=== PATIENT | male | born 1950 | race Caucasian/White ===

== ENCOUNTER 2020-09-29 07:06 | Outpatient (CLI) | payer MEDICARE, SELFPAY ==
--- NOTE | 2020-09-29 07:15 | USCV_ITS ---
Leonard Montiel Sr Age: 70 Gender: M : 1950 Exam Date: 09/29/2020 07:25 Ordering Phys: Miguel Angel Godwin MD ([email or web address]) Technologist: Exam [place]: [facility] [place]: HX OF LT RENAL STENOIS Aortic Velocity @ SMA (cm/s) 63.6 RIGHT KIDNEY LEFT KIDNEY Velocity (cm/s) Velocity (cm/s) Sys/Sterling Sys/Sterling Resistive Index Resistive Index 95.5 / 24.8 0.74 Proximal Renal Artery 279.0 / 53.6 0.82 100.2 / 21.2 0.79 Mid Renal Artery 144.3 / 39.2 0.74 167.4 / 41.3 0.75 Distal Renal Artery 83.3 / 19.1 0.77 110.8 / 29.5 0.73 Hilar 86.7 / 16.9 0.81 54.8 / 10.7 0.81 Upper Pole 46.9 / 10.3 0.78 79.5 / 22.8 0.71 Mid Pole 47.0 / 33.5 0.30 82.2 / 20.1 0.76 Lower Pole 48.2 / 12.9 0.73 2.60 Renal Aortic Ratio 5.05 Accleration Index (cm/sec2) 1645.0 Hilar 875.00 0 1121.0 Upper Pole 307.00 0 1224.0 Mid Pole 310.00 0 1054.0 Lower Pole 369.00 0 106.9 Kidney Length (mm) 91.4 FINDINGS NO CHANGE FROM PREVIOUS Elevated velocity in the left proximal renal artery with renal aortic ratio of greater than 3.5 Elevated resistive indicis bilaterally CONCLUSIONS 1. Features of greater than 60% stenosis in the left renal artery at the proximal segment. 2. Normal kidney dimensions. 3. Elevated resistive indicis suggestive of medical renal disease No similar previous studies are available for comparison Dr Enedina Vincent MD [facility] (Electronically Signed) Final Date: 30 September 2020 08:36 S
== END 2020-09-29 07:07 | disposition home or self-care (01) ==
PROVIDERS: PCP Nurse Practitioner; Visit Provider Internal Medicine Cardiovascular Disease
DX: I70.1 Atherosclerosis of renal artery (principal); Z87.442 Personal history of urinary calculi
CPT/HCPCS: 93975

== ENCOUNTER → 2021-05-02 08:57 | Outpatient (BNVA) | payer MEDICARE, SELFPAY | PROVIDERS: PCP Nurse Practitioner Family; Visit Provider Nurse Practitioner Family | DX: I10 Essential (primary) hypertension (principal); Z12.5 Encounter for screening for malignant neoplasm of prostate; E55.9 Vitamin D deficiency, unspecified | CPT/HCPCS: 80053; 80061; 82306; 84443; 85025; G0103 ==

== ENCOUNTER → 2021-10-21 08:37 | Outpatient (BNVA) | payer MEDICARE, SELFPAY | PROVIDERS: PCP Nurse Practitioner Family; Visit Provider Nurse Practitioner Family | DX: R53.83 Other fatigue (principal); Z68.29 Body mass index [BMI] 29.0-29.9, adult | CPT/HCPCS: 82607; 84403; 86000; 86618; 86666; 86757 ==

== ENCOUNTER → 2022-10-25 11:15 | Outpatient (BNVA) | payer MEDICARE, OTHER, SELFPAY | PROVIDERS: PCP Nurse Practitioner Family; Visit Provider Family Medicine | DX: R35.0 Frequency of micturition (principal); N39.0 Urinary tract infection, site not specified | CPT/HCPCS: 81003; 87077; 87086; 87184 ==

== ENCOUNTER 2022-11-03 17:55 | Outpatient (CLI) | payer MEDICARE, OTHER, SELFPAY ==
--- NOTE | 2022-11-03 18:35 | XRR_ITS ---
PROCEDURE INFORMATION: Exam: XR Right Ribs Exam date and time: 11/03/2022 7:36 PM Age: 72 years old Clinical indication: Chest wall pain; Right; Additional info: R07.81 - pleurodynia TECHNIQUE: Imaging protocol: Radiologic exam of the right ribs. Views: 2 views. COMPARISON: CT angio abdomen [id number] 10/15/2017 9:00 AM FINDINGS: Bones/joints: No displaced rib fractures are evident. Soft tissues: Normal. XR/XR ribs RT 2V* [id number] IMPRESSION: No displaced rib fractures are seen, but there is limited plain film sensitivity for nondisplaced fractures. Regardless, there is no evidence of pneumothorax, pulmonary parenchymal contusion, or pleural effusion.
--- NOTE | 2022-11-03 18:35 | XRR_ITS ---
PROCEDURE INFORMATION: Exam: XR Chest Exam date and time: 11/03/2022 7:36 PM Age: 72 years old Clinical indication: Chest wall pain; Additional info: R07.81 - pleurodynia TECHNIQUE: Imaging protocol: Radiologic exam of the chest. Views: 2 views. COMPARISON: CT angio abdomen [id number] 10/15/2017 9:00 AM FINDINGS: Lungs: Lungs are hyperinflated. Clear parenchyma. Pleural spaces: No pleural effusion. No pneumothorax. Heart/Mediastinum: Cardiac silhouette is normal in size for technique. Bones/joints: Age appropriate. XR/XR chest 2V* [id number] IMPRESSION: Hyperinflated but clear lungs. No other acute cardiopulmonary abnormality.
== END 2022-11-03 18:28 | disposition home or self-care (01) ==
LOC: ER 18:05 → RAD 18:29
PROVIDERS: PCP Nurse Practitioner Family; Visit Provider Nurse Practitioner Family
DX: R07.81 Pleurodynia (principal)
CPT/HCPCS: 71046; 71100

== ENCOUNTER → 2022-11-20 10:40 | Outpatient (BNVA) | payer MEDICARE, OTHER, SELFPAY | PROVIDERS: PCP Nurse Practitioner Family; Visit Provider Nurse Practitioner Family | DX: R30.0 Dysuria (principal); N39.0 Urinary tract infection, site not specified; R31.9 Hematuria, unspecified; R07.81 Pleurodynia | CPT/HCPCS: 81003; 87077; 87086; 87184 ==

== ENCOUNTER → 2022-12-04 16:55 | Outpatient (BNVA) | payer MEDICARE, OTHER, SELFPAY | PROVIDERS: PCP Nurse Practitioner Family; Visit Provider Nurse Practitioner Family | DX: R35.0 Frequency of micturition (principal) | CPT/HCPCS: 81000; 81003; 87077; 87086; 87184 ==

== ENCOUNTER 2024-05-06 07:45 | Outpatient (CLI) | payer MEDICARE, OTHER, SELFPAY ==
--- NOTE | 2024-05-06 07:53 | XRR_ITS ---
PROCEDURE INFORMATION: Exam: XR Bilateral Hips Exam date and time: 05/06/2024 7:58 AM Age: 74 years old Clinical indication: Hip pain; Bilateral; Patient HX: --hx of tailbone fracture, x1 week injured groin area, pain runs around lower back; Additional info: M25.551 - pain in right hip TECHNIQUE: Imaging protocol: Radiologic exam of the bilateral hips. Views: 2 views of hips with pelvis when performed. COMPARISON: CR XR lumbar spine 2-3V* [id number] 05/06/2024 7:58 AM FINDINGS: Bones/joints: There are mild degenerative changes of both hip joints with some joint space narrowing and subchondral sclerosis. There is no fracture, malalignment or underlying osseous lesion detected. Remainder of the visualized osseous structures are unremarkable. Soft tissues: Unremarkable. XR/XR hip BI m 5V wo/w pel* [id number] IMPRESSION: Mild degenerative changes both hip joints. No acute abnormalities.
--- NOTE | 2024-05-06 07:53 | XRR_ITS ---
PROCEDURE INFORMATION: Exam: XR Lumbosacral Spine Exam date and time: 05/06/2024 7:58 AM Age: 74 years old Clinical indication: Low back pain; Patient HX: --hx of tailbone fracture, x1 week injured groin area, pain runs around lower back; Additional info: M54.50 - low back pain, unspecified TECHNIQUE: Imaging protocol: Radiologic exam of the lumbosacral spine. Views: 2 or 3 views. COMPARISON: CR XR hip BI m 5V wo/w pel* [id number] 05/06/2024 7:58 AM FINDINGS: Bones/joints: Lumbar curvature and alignment is unremarkable. There is a chronic compression fracture of L1 unchanged with a proximally 30% loss vertebral body height. No malalignment. Mild-moderate degenerative changes are present throughout the remainder of the lumbar spine with accompanying facet arthrosis. There is no spondylolisthesis. Pedicles are intact Soft tissues: Unremarkable. Vasculature: Abdominal aorta is diffusely calcified. XR/XR lumbar spine 2-3V* [id number] IMPRESSION: 1. Chronic compression fracture L1 unchanged. 2. Mild-moderate degenerative changes throughout the lumbar spine.
== END 2024-05-06 07:46 | disposition home or self-care (01) ==
LOC: RAD 07:52
PROVIDERS: PCP Nurse Practitioner Family; Visit Provider Nurse Practitioner Family
DX: S32.010D Wedge compression fracture of first lumbar vertebra, subsequent encounter for fracture with routine healing (principal); X58.XXXD Exposure to other specified factors, subsequent encounter; M51.360 Other intervertebral disc degeneration, lumbar region with discogenic back pain only; M47.896 Other spondylosis, lumbar region; I70.0 Atherosclerosis of aorta; M25.551 Pain in right hip; M25.552 Pain in left hip
CPT/HCPCS: 72100; 73523

== ENCOUNTER 2024-05-16 07:38 | Outpatient (CLI) | payer MEDICARE, OTHER, SELFPAY ==
--- NOTE | 2024-05-16 08:00 | MR_ITS ---
WS: [id number] MRI LUMBAR SPINE NONCONTRAST HISTORY: S32.010A - Wedge compression fracture of first lumbar vertebral body COMPARISON: Radiograph 05/06/2024 TECHNIQUE: Sagittal and axial multisequence imaging is submitted. Mild increase in thoracic kyphosis. Mild anterior wedging of T8. Mild scoliosis lumbar spine. Posterior alignment is normal. Disc spaces are narrowed and desiccated. 50% compression fracture at L1. Chronic fracture. Fracture was present on a CT from 2018. Small amoun t of reactive marrow edema along the posterior endplates of the lumbar vertebral bodies. There is no fracture. Disc spaces are narrowed and desiccated. Conus terminates normally at L1-2 disc level. L1-L2: Mild annular disc bulging with a broad-based LEFT foraminal disc protrusion. Mild disc encroac hment upon the subarticular recesses. Mild bilateral subarticular recess and LEFT foraminal stenosis. L2-L3: Diffuse annular disc bulging with osteophytic ridging. Moderate LEFT paracentral disc protrusi on extends into the subarticular recess. There is disc encroachment and displacement of the LEFT candelaria ersing L3 nerve root. Mild bilateral foraminal stenosis. Additional LEFT foraminal disc protrusion. L3-L4: Diffuse annular disc bulging with moderate ligamentum flavum and mild facet arthritis. Disc en croachment upon the ventral thecal sac. Proximal RIGHT foraminal disc protrusion. Additional broad-ba sed disc protrusion in the RIGHT lateral foramen. Combination of findings resulting in mild central, bilateral subarticular recess and moderate foraminal stenosis, RIGHT greater than LEFT. Lateral disc protrusion does contact the RIGHT exiting L3 nerve root. L4-L5: Diffuse annular disc bulging with a central disc protrusion. Marked ligamentum flavum hypertro phy. Disc osteophyte complexes extending into the foramina. Greater disc protrusion on the RIGHT. Mod erate central and bilateral subarticular recess and foraminal stenosis. There is encroachment upon th e L4 and L5 nerve roots. L5-S1: Annular disc bulging. Mild osteophytic ridging, ligamentum flavum and facet arthritis. Mild frazier barticular recess with moderate bilateral foraminal stenosis. Mildly ectatic abdominal aorta. MR/MR lumbar spine wo con* [id number] IMPRESSION: 1. Moderate degenerative changes throughout the lumbar spine with multilevel a reas of stenosis. 2. Chronic L1 50% compression fracture. 3. L4-5: Moderate central, bilateral subarticular recess and foraminal stenosi s. There is encroachment upon the L4 and L5 nerve roots. 4. L5-S1: Mild subarticular recess and moderate bilateral foraminal stenosis d ue to disc and osteophyte disease. 5. L3-4: Proximal RIGHT foraminal and far lateral RIGHT foraminal disc protrus ions. Mild central, bilateral subarticular recess and moderate foraminal stenos is, RIGHT greater than LEFT. Lateral disc protrusion does contact the exiting R IGHT L3 nerve root. 6. L2-3: Moderate LEFT paracentral disc protrusion encroaching into the subart icular recess contacting the traversing L3 nerve root. Smaller LEFT foraminal d isc protrusion. 7. L1-2: Broad-based LEFT foraminal disc protrusion. Mild subarticular recess and LEFT foraminal stenosis.
== END 2024-05-16 07:39 | disposition home or self-care (01) ==
LOC: RAD 07:39
PROVIDERS: PCP Nurse Practitioner Family; Visit Provider Nurse Practitioner Family
DX: S32.010A Wedge compression fracture of first lumbar vertebra, initial encounter for closed fracture (principal); M51.369 Other intervertebral disc degeneration, lumbar region without mention of lumbar back pain or lower extremity pain; M48.061 Spinal stenosis, lumbar region without neurogenic claudication; M48.07 Spinal stenosis, lumbosacral region; M51.26 Other intervertebral disc displacement, lumbar region; M25.78 Osteophyte, vertebrae; X58.XXXA Exposure to other specified factors, initial encounter; M47.816 Spondylosis without myelopathy or radiculopathy, lumbar region; R93.89 Abnormal findings on diagnostic imaging of other specified body structures; M51.379 Other intervertebral disc degeneration, lumbosacral region without mention of lumbar back pain or lower extremity pain; M47.897 Other spondylosis, lumbosacral region; I77.811 Abdominal aortic ectasia
CPT/HCPCS: 72148